=== PATIENT | male | born 1955 | race Two or more races ===

== ENCOUNTER 2017-12-08 15:11 | Emergency (ER) | payer OTHER ==
[~2017-12-08] VITALS: Ht 170.2 cm; Wt 87.1 kg
[2017-12-08 15:46] VITALS: BP 152/86
[2017-12-08] MEDS ORDERED: KETOROLAC TROMETH 60MG/2ML VIAL IM ONE (16:15)
== END 2017-12-08 17:37 | disposition home or self-care (01) ==
LOC: ER 15:16
DX: G89.29 Other chronic pain (principal); M54.5 Low back pain; I10 Essential (primary) hypertension; J45.909 Unspecified asthma, uncomplicated
CPT/HCPCS: 72100; 96372; 99284; J1885

== ENCOUNTER → 2022-07-31 | Day surgery (SDC) | payer OTHER ==
[2022-07-28 12:24] LABS: Basophils # (auto) 0 10 ^3/uL (0-0.2); Basophils % (auto) 0.3 % (0.0-2.0); Eosinophils # (auto) 0.1 10 ^3/uL (0-0.8); Eosinophils % (auto) 1.8 % (0.0-7.0); Hematocrit 36.7 % (41.0-53.0); Hemoglobin 12.8 g/dL (13.5-17.5); Lymphocytes # (auto) 0.6 10 ^3/uL (0.4-5.4); Lymphocytes % (auto) 14.2 % (10.0-50.0); Mean Corpuscular Hgb Conc. 34.7 g/dL (32.0-36.0); Mean Corpuscular Volume 92.2 fL (80.0-100.0); Monocytes # (auto) 0.6 10 ^3/uL (0-1.3); Monocytes % (auto) 13.6 % (0.0-12.0); Neutrophils # (auto) 2.9 10 ^3/uL (1.6-8.6); Neutrophils % (auto) 70.1 % (37.0-80.0); Nucleated Red Blood Cells % 0.1 %; Red Blood Cells 3.98 10^6/uL (4.5-5.90); Red Cell Distribution Width 13.2 % (11.8-14.3); White Blood Cell 4.1 10^3/uL (4.4-10.8)
[2022-07-28 12:26] LABS: INR 0.96 (0.9-1.15); Partial Thromboplastin Time 30.2 sec (24.6-33.4)
[2022-07-28 13:02] LABS: Potassium 4.4 mmol/L (3.5-5.1)
[2022-07-28 13:21] LABS: Albumin 4.6 g/dL (3.4-5.0); BUN/Creatinine Ratio 18.6; Bilirubin, Total 0.5 mg/dL (0.2-1.0); Calcium 8.9 mg/dL (8.5-10.1); Total Protein 7.8 g/dL (6.4-8.2)
[2022-07-28 14:53] LABS: Urine Bacteria NONE SEEN /hpf (None Seen); Urine Blood Negative /uL (Negative); Urine Specific Gravity 1.022 (1.001-1.035); Urine WBC <1 /hpf (0 - 3)
[~2022-07-31] VITALS: Ht 172.7 cm; Wt 90.7 kg
[~2022-07-31] MED LIST: CIPROFLOXACIN 400MG/200ML 200 ML IV ONE; DOXE10CA PO; DexAMETHasone SOD PHOS 10MG/1ML VIAL INJ ONE; ESCI10TA PO; FLUO0.0127 OT; FLUO20TA34 PO; GLYCOPYRROLATE 0.2 MG/ML 1ML VIAL ONE; HYDR-3682 PO; HYDR1TAB97 PO; IBUP800T27 PO; KETOROLAC TROMETH 30 MG/ML 1ML VIAL ONE; LEVO200C3 PO; LIDOCAINE 2% (LOCAL ANESTH.) PF 5ml SDV ONE; LOSA-39 PO; MONT10TA23 PO; NAPR-1334 PO; ONDANSETRON HCL 4 MG/2 ML VIAL ONE; PROPOFOL 10 MG/ML 20 ML IV ONE; ROSU10TA16 PO; TRAZ100T3 PO
[2022-07-31 08:15] VITALS: BP 121/73
== END | disposition home or self-care (01) ==
LOC: SUR 06:21
PROVIDERS: ATTEND Urology
DX: C61 Malignant neoplasm of prostate (principal); R97.20 Elevated prostate specific antigen [PSA]; I10 Essential (primary) hypertension; E78.5 Hyperlipidemia, unspecified; J44.9 Chronic obstructive pulmonary disease, unspecified; M19.90 Unspecified osteoarthritis, unspecified site; E03.9 Hypothyroidism, unspecified; M10.9 Gout, unspecified; I82.509 Chronic embolism and thrombosis of unspecified deep veins of unspecified lower extremity; F32.A Depression, unspecified; E66.3 Overweight; Z68.30 Body mass index [BMI] 30.0-30.9, adult; Z79.891 Long term (current) use of opiate analgesic; Z85.850 Personal history of malignant neoplasm of thyroid; Z79.1 Long term (current) use of non-steroidal anti-inflammatories (NSAID); Z79.899 Other long term (current) drug therapy; Z98.890 Other specified postprocedural states; Z79.890 Hormone replacement therapy; Z20.822 Contact with and (suspected) exposure to COVID-19
CPT/HCPCS: 36415; 55700; 76872; 80053; 81001; 85025; 85610; 85730; 87086; 88305; 88342; J0744; J1100; J1885; J2001; J2405; J2704; U0003

== ENCOUNTER 2023-05-17 10:27 | Inpatient (IN) | payer OTHER ==
[~2023-05-17] VITALS: Ht 172.7 cm; Wt 90.2 kg
[~2023-05-17 10:27] MED LIST changes: -CIPROFLOXACIN 400MG/200ML 200 ML IV ONE; -DexAMETHasone SOD PHOS 10MG/1ML VIAL INJ ONE; -FLUO20TA34 PO; +FLUO20TA36 PO; -GLYCOPYRROLATE 0.2 MG/ML 1ML VIAL ONE; +IBUP-1456 PO; -IBUP800T27 PO; -KETOROLAC TROMETH 30 MG/ML 1ML VIAL ONE; -LIDOCAINE 2% (LOCAL ANESTH.) PF 5ml SDV ONE; -LOSA-39 PO; +LOSA100T58 PO; -ONDANSETRON HCL 4 MG/2 ML VIAL ONE; -PROPOFOL 10 MG/ML 20 ML IV ONE; +TRAZ-228 PO; -TRAZ100T3 PO
[2023-05-17] MEDS ORDERED: SODIUM CHLORIDE 0.9% 1,000 ML IV ONE (11:00)
[2023-05-17 11:19] VITALS: PULSE 96
[2023-05-17 11:34] LABS: Basophils # (auto) 0 10 ^3/uL (0-0.2); Basophils % (auto) 0.2 % (0.0-2.0); Eosinophils # (auto) 0 10 ^3/uL (0-0.8); Eosinophils % (auto) 0.1 % (0.0-7.0); Hematocrit 36.4 % (41.0-53.0); Hemoglobin 12.7 g/dL (13.5-17.5); Lymphocytes # (auto) 0.2 10 ^3/uL (0.4-5.4); Lymphocytes % (auto) 2.6 % (10.0-50.0); Mean Corpuscular Hemoglobin 32.1 pg (28.0-32.0); Mean Corpuscular Hgb Conc. 34.9 g/dL (32.0-36.0); Mean Corpuscular Volume 91.9 fL (80.0-100.0); Monocytes # (auto) 0.4 10 ^3/uL (0-1.3); Monocytes % (auto) 5.8 % (0.0-12.0); Neutrophils # (auto) 5.8 10 ^3/uL (1.6-8.6); Neutrophils % (auto) 91.3 % (37.0-80.0); Nucleated Red Blood Cells % 0.1 %; Red Blood Cells 3.96 10^6/uL (4.5-5.90); Red Cell Distribution Width 12.9 % (11.8-14.3); White Blood Cell 6.4 10^3/uL (4.4-10.8)
[2023-05-17 11:49] LABS: INR 0.96 (0.9-1.15); Partial Thromboplastin Time 30.8 SEC (24.5-34.5); Prothrombin Time 10.1 sec (9.3-11.8)
[2023-05-17 11:53] LABS: Alanine Aminotransferase 49 U/L (7-40); Albumin 4.8 g/dL (3.2-4.8); Alkaline Phosphatase 97 U/L (46-116); Anion Gap 11 (5-15); Aspartate Aminotransferase 37 U/L (13-40); BUN/Creatinine Ratio 13.3 (10.0-20.0); Bilirubin, Total 0.5 mg/dL (0.2-1.0); Blood Urea Nitrogen 21 mg/dL (9-23); Calcium 8.7 mg/dL (8.7-10.4); Carbon Dioxide 16 mmol/L (20-30); Chloride 107 mmol/L (98-107); Glucose 158 mg/dL (74-106); Potassium 4.3 mmol/L (3.5-5.1); Sodium 134 mmol/L (136-145); Total Protein 7.3 g/dL (5.7-8.2)
[2023-05-17] MEDS ORDERED: PANTOPRAZOLE 40 MG/10 ML VIAL INJ IV ONE (14:00)
[2023-05-17] MEDS ORDERED: NITROGLYCERIN 0.4 MG SL TAB SL PRN (14:00)
[2023-05-17] MEDS ORDERED: ALBUTEROL MEDNEB 2.5 mg/3ml NEB NEB PRN (14:00)
[2023-05-17] MEDS ORDERED: MORPHINE SULFATE INJ 2 MG/ml SYRG IV PRN (14:00)
[2023-05-17] MEDS ORDERED: ACETAMINOPHEN 325 MG TAB PO PRN (14:00)
[2023-05-17] MEDS ORDERED: levETIRAcetam 1000 mg/100ml 100 ML IV ONE (14:15)
[2023-05-17] MEDS: SODIUM CHLORIDE 0.9% 1,000 ML IV SCH (14:26)
[2023-05-17 14:42] VITALS: BP 145/80; PULSE 86; RESP 19; O2SAT 96
[2023-05-17 15:28] LABS: Amphetamine Screen, Urine Neg (NEGATIVE); Barbiturate Scree,Urine Neg (NEGATIVE); Benzodiazephine Screen, Urine Neg (NEGATIVE); Cannabinoid Screen, Urine Pos (NEGATIVE); Cocaine Screen, Urine Neg (NEGATIVE); Opiate Scree,Urine Neg (NEGATIVE); Phencyclidine Screen, Urine Neg (NEGATIVE)
[2023-05-17 15:33] LABS: Urine Amorphous Crystal FEW /hpf (None Seen); Urine Bacteria NONE SEEN /hpf (None Seen); Urine Blood Negative /uL (Negative); Urine Clarity HAZY (Clear); Urine Color Yellow (Yellow); Urine Mucus FEW (None Seen); Urine Protein, UAD 1+ (Negative); Urine Specific Gravity 1.016 (1.001-1.035); Urine Urobilinogen Normal (Negative); Urine WBC 2 /hpf (0 - 3); Urine pH 5.5 (5.0-8.0)
[2023-05-17 18:42] VITALS: O2SAT 95
[2023-05-17 18:43] VITALS: PULSE 77; RESP 18; O2SAT 95
[2023-05-17 19:25] VITALS: PULSE 89; RESP 18; O2SAT 98
[2023-05-18 05:34] LABS: Basophils # (auto) 0 10 ^3/uL (0-0.2); Basophils % (auto) 0.3 % (0.0-2.0); Eosinophils # (auto) 0 10 ^3/uL (0-0.8); Eosinophils % (auto) 0.4 % (0.0-7.0); Hematocrit 33.4 % (41.0-53.0); Hemoglobin 11.7 g/dL (13.5-17.5); Lymphocytes # (auto) 0.3 10 ^3/uL (0.4-5.4); Lymphocytes % (auto) 6.3 % (10.0-50.0); Mean Corpuscular Volume 91.2 fL (80.0-100.0); Monocytes # (auto) 0.7 10 ^3/uL (0-1.3); Monocytes % (auto) 14.3 % (0.0-12.0); Neutrophils # (auto) 3.7 10 ^3/uL (1.6-8.6); Neutrophils % (auto) 78.7 % (37.0-80.0); Nucleated Red Blood Cells % 0.1 %; Red Blood Cells 3.66 10^6/uL (4.5-5.90); Red Cell Distribution Width 12.9 % (11.8-14.3); White Blood Cell 4.7 10^3/uL (4.4-10.8)
[2023-05-18 05:46] LABS: Alanine Aminotransferase 39 U/L (7-40); Alkaline Phosphatase 83 U/L (46-116); Anion Gap 10 (5-15); Aspartate Aminotransferase 29 U/L (13-40); BUN/Creatinine Ratio 14.8 (10.0-20.0); Blood Urea Nitrogen 20 mg/dL (9-23); Calcium 8.5 mg/dL (8.7-10.4); Carbon Dioxide 17 mmol/L (20-30); Chloride 111 mmol/L (98-107); Glucose 116 mg/dL (74-106); Potassium 3.8 mmol/L (3.5-5.1); Sodium 138 mmol/L (136-145)
[2023-05-18 05:47] LABS: Albumin 4.5 g/dL (3.2-4.8); Bilirubin, Total 0.6 mg/dL (0.2-1.0); Total Protein 6.9 g/dL (5.7-8.2)
[2023-05-18] MEDS: LEVOTHYROXINE SODIUM 100 MCG TAB PO SCH (06:53)
[2023-05-18] MEDS: SODIUM CHLORIDE 0.9% 1,000 ML IV SCH ×2 (06:53→16:40)
[2023-05-18 09:38] VITALS: O2SAT 97
[2023-05-18] MEDS ORDERED: LORazepam 2MG/ML-1ML VIAL IV PRN ×2 (09:45)
[2023-05-18] MEDS ORDERED: levETIRAcetam 1000 mg/100ml 100 ML IV SCH (10:00)
[2023-05-18] MEDS ORDERED: ENOXAPARIN SOD 40 MG/0.4 ML SYRINGE SC SCH (10:00)
[2023-05-18 10:53] VITALS: PULSE 75; RESP 12; O2SAT 97
[2023-05-18] MEDS: ATORVASTATIN 20 MG TAB PO SCH (11:02)
[2023-05-18] MEDS: PANTOPRAZOLE 40 MG/10 ML VIAL INJ IV SCH (11:02)
[2023-05-18] MEDS: FLUoxetine HCL 20 MG CAP PO SCH (11:02)
[2023-05-18] MEDS: LOSARTAN POTASSIUM 50 MG TAB PO SCH (11:03)
[2023-05-18] MEDS: Doxepin Hcl 10 MG PO SCH (11:04)
[2023-05-18 14:51] LABS: Hepatitis B Surface Antigen Negative (Negative)
[2023-05-18 15:12] LABS: Hepatitis C Antibody Negative (Negative)
[2023-05-18 16:40] VITALS: BP 133/70; PULSE 81; RESP 16; TEMP 98.4; O2SAT 97
[2023-05-18 20:00] VITALS: PULSE 90
[2023-05-18 22:00] VITALS: BP 141/69; PULSE 91; RESP 18; TEMP 99.4; O2SAT 96
[2023-05-18 22:01] VITALS: PULSE 90; O2SAT 98
[2023-05-19] VITALS (10 sets, daily range): BP systolic 119–155; BP diastolic 74–78; PULSE 74–92; RESP 16–20; TEMP 97.3–97.9; O2SAT 96–99
[2023-05-19 05:53] LABS: Basophils # (auto) 0 10 ^3/uL (0-0.2); Basophils % (auto) 0.4 % (0.0-2.0); Eosinophils # (auto) 0 10 ^3/uL (0-0.8); Eosinophils % (auto) 0.9 % (0.0-7.0); Hematocrit 32.4 % (41.0-53.0); Hemoglobin 11.6 g/dL (13.5-17.5); Lymphocytes # (auto) 0.4 10 ^3/uL (0.4-5.4); Lymphocytes % (auto) 9.7 % (10.0-50.0); Mean Corpuscular Hgb Conc. 35.7 g/dL (32.0-36.0); Mean Corpuscular Volume 92.4 fL (80.0-100.0); Monocytes # (auto) 0.7 10 ^3/uL (0-1.3); Monocytes % (auto) 17.5 % (0.0-12.0); Neutrophils # (auto) 2.9 10 ^3/uL (1.6-8.6); Neutrophils % (auto) 71.5 % (37.0-80.0); Red Blood Cells 3.51 10^6/uL (4.5-5.90); White Blood Cell 4.1 10^3/uL (4.4-10.8)
[2023-05-19] MEDS: SODIUM CHLORIDE 0.9% 1,000 ML IV SCH ×2 (06:00→15:00)
[2023-05-19] MEDS: LEVOTHYROXINE SODIUM 100 MCG TAB PO SCH (06:11)
[2023-05-19 06:20] LABS: Alanine Aminotransferase 38 U/L (7-40); Albumin 4.3 g/dL (3.2-4.8); Alkaline Phosphatase 84 U/L (46-116); Anion Gap 9 (5-15); Aspartate Aminotransferase 32 U/L (13-40); BUN/Creatinine Ratio 14.4 (10.0-20.0); Blood Urea Nitrogen 20 mg/dL (9-23); Calcium 8.6 mg/dL (8.7-10.4); Carbon Dioxide 19 mmol/L (20-30); Chloride 110 mmol/L (98-107); Glucose 120 mg/dL (74-106); Potassium 4.1 mmol/L (3.5-5.1); Sodium 138 mmol/L (136-145)
[2023-05-19 06:21] LABS: Bilirubin, Total 0.6 mg/dL (0.2-1.0); Total Protein 6.7 g/dL (5.7-8.2)
[2023-05-19] MEDS: Doxepin Hcl 10 MG PO SCH (10:00)
[2023-05-19] MEDS: PANTOPRAZOLE 40 MG/10 ML VIAL INJ IV SCH (10:53)
[2023-05-19] MEDS: ATORVASTATIN 20 MG TAB PO SCH (10:54)
[2023-05-19] MEDS: FLUoxetine HCL 20 MG CAP PO SCH (10:54)
[2023-05-19] MEDS: LOSARTAN POTASSIUM 50 MG TAB PO SCH (10:59)
[2023-05-20 05:00] VITALS: BP 129/90; PULSE 80; RESP 20; TEMP 97.4; O2SAT 99
[2023-05-20] MEDS: LEVOTHYROXINE SODIUM 100 MCG TAB PO SCH (06:13)
[2023-05-20 06:44] LABS: Anion Gap 10 (5-15); Carbon Dioxide 18 mmol/L (20-30); Chloride 112 mmol/L (98-107); Sodium 140 mmol/L (136-145)
[2023-05-20 06:45] LABS: Calcium 8.8 mg/dL (8.7-10.4)
[2023-05-20 06:50] LABS: Blood Urea Nitrogen 17 mg/dL (9-23); Glucose 124 mg/dL (74-106)
[2023-05-20 06:52] LABS: Basophils # (auto) 0 10 ^3/uL (0-0.2); Basophils % (auto) 0.5 % (0.0-2.0); Eosinophils # (auto) 0.1 10 ^3/uL (0-0.8); Eosinophils % (auto) 1.7 % (0.0-7.0); Hematocrit 32.5 % (41.0-53.0); Hemoglobin 11.4 g/dL (13.5-17.5); Lymphocytes # (auto) 0.3 10 ^3/uL (0.4-5.4); Lymphocytes % (auto) 8.3 % (10.0-50.0); Mean Corpuscular Hemoglobin 32.4 pg (28.0-32.0); Mean Corpuscular Volume 92.6 fL (80.0-100.0); Monocytes # (auto) 0.6 10 ^3/uL (0-1.3); Monocytes % (auto) 14.6 % (0.0-12.0); Neutrophils % (auto) 74.9 % (37.0-80.0); Red Blood Cells 3.51 10^6/uL (4.5-5.90); Red Cell Distribution Width 12.9 % (11.8-14.3)
[2023-05-20 08:00] VITALS: PULSE 72; RESP 17
[2023-05-20] MEDS: SODIUM CHLORIDE 0.9% 1,000 ML IV SCH (08:40)
[2023-05-20 09:00] VITALS: BP 131/70; PULSE 79; RESP 20; TEMP 97.4; O2SAT 99
[2023-05-20 09:10] VITALS: BP 129/90; PULSE 79; RESP 18; O2SAT 98
[2023-05-20 10:00] VITALS: O2SAT 96
[2023-05-20] MEDS: PANTOPRAZOLE 40 MG/10 ML VIAL INJ IV SCH (10:00)
[2023-05-20] MEDS: Doxepin Hcl 10 MG PO SCH (10:00)
[2023-05-20] MEDS: FLUoxetine HCL 20 MG CAP PO SCH (10:01)
[2023-05-20] MEDS: ATORVASTATIN 20 MG TAB PO SCH (10:01)
[2023-05-20] MEDS: LOSARTAN POTASSIUM 50 MG TAB PO SCH (10:02)
[2023-05-20 11:23] VITALS: BP 131/70; TEMP 36.3
== END 2023-05-20 12:09 | disposition home or self-care (01) | DRG 101 ==
LOC: ER 10:27 → EDBD 10:27 → TELE 13:55 → TELE-CENTR 05-18 13:17
PROVIDERS: ADMIT Internal Medicine Geriatric Medicine; ATTEND Internal Medicine
PROC: 5A09357 Assistance with Respiratory Ventilation, Less than 24 Consecutive Hours, Continuous Positive Airway Pressure (ICD-10-PCS; principal; 2023-05-18)
DX: G40.409 Other generalized epilepsy and epileptic syndromes, not intractable, without status epilepticus (principal); K92.1 Melena; R73.9 Hyperglycemia, unspecified; E87.6 Hypokalemia; E03.9 Hypothyroidism, unspecified; J45.909 Unspecified asthma, uncomplicated; G47.33 Obstructive sleep apnea (adult) (pediatric); I10 Essential (primary) hypertension; F32.A Depression, unspecified; F41.9 Anxiety disorder, unspecified; G89.29 Other chronic pain; M54.50 Low back pain, unspecified; N28.9 Disorder of kidney and ureter, unspecified; E66.3 Overweight; Z85.46 Personal history of malignant neoplasm of prostate; Z80.42 Family history of malignant neoplasm of prostate; Z83.3 Family history of diabetes mellitus; Z82.49 Family history of ischemic heart disease and other diseases of the circulatory system; Z68.30 Body mass index [BMI] 30.0-30.9, adult; Z80.0 Family history of malignant neoplasm of digestive organs; Z85.850 Personal history of malignant neoplasm of thyroid
CPT/HCPCS: 36415; 70450; 70551; 80048; 80053; 80307; 81001; 82270; 83036; 83735; 84443; 84484; 85025; 85610; 85730; 86803; 86850; 86900; 86901; 87040; 87045; 87077; 87177; 87186; 87340; 87427; 87493; 93005; 93306; 93886; 94640; 95819; 96361; 96365; 97110; 97116; 97163; C9113; G0378